=== PATIENT | female | born 1955 | race Asian ===

== ENCOUNTER 2018-06-30 05:33 | Emergency (ER) | payer OTHER ==
[~2018-06-30] VITALS: Ht 157.5 cm; Wt 75.4 kg
[2018-06-30 05:34] VITALS: BP 100/67
--- NOTE | 2018-06-30 05:47 | NUR ---
assessment made. ERP at bedside.
--- NOTE | 2018-06-30 06:13 | NUR ---
patient discharged with prescription and instruction. verbalized understanding. work note given.
== END 2018-06-30 06:16 | disposition home or self-care (01) ==
LOC: ED 06:10
DX: J10.1 Influenza due to other identified influenza virus with other respiratory manifestations (principal)
CPT/HCPCS: 99283

== ENCOUNTER 2020-09-30 08:24 | Emergency (ER) | payer OTHER ==
[~2020-09-30] VITALS: Ht 157.5 cm; Wt 76.4 kg
[~2020-09-30 08:24] MED LIST: PRAV20TA2 PO
[2020-09-30] MEDS ORDERED: MAALOX/HYOSCYAMINE/LIDOCAINE 45 ML BTL PO ONE (09:00)
[2020-09-30] MEDS ORDERED: ONDANSETRON 2MG/ML, 2ML IVPush ONE (09:00)
[2020-09-30] MEDS ORDERED: SODIUM CHLORIDE FLUSH 10ML SYR IVF ONE (09:00)
[2020-09-30 09:15] LABS: MICROSCOPIC AUTO
--- NOTE | 2020-09-30 09:21 | NUR ---
PT HAS BEEN EXPERIENCING ABDOMINAL PAIN WITH BACK PAIN FOR THREE DAYS. LABS OBTAINED INCLUDING URINE SPECIMEN
[2020-09-30 09:23] LABS: ALANINE AMINOTRANSFERASE 34 U/L (12-78); ALBUMIN 3.8 g/dL (3.4-5.0); ANION GAP 4 mmol/L (5-15); CHLORIDE 106 mmol/L (98-107); CREATININE 0.84 mg/dL (0.55-1.02)
[2020-09-30 09:25] LABS: ALKALINE PHOSPHATASE 71 U/L (45-117); BASOPHILS % (AUTO) 0 % (0-1); BILIRUBIN,TOTAL 1.2 mg/dL (0.2-1.0); EOSINOPHILS % (AUTO) 0 % (1-7); LYMPHOCYTES % (AUTO) 10 % (22-44); MEAN CORPUSCULAR HEMOGLOBIN 30.2 pg (27.0-34.8); MEAN CORPUSCULAR HGB CONC 33.2 g/dL (32.4-35.8); MEAN PLATELET VOLUME 8.2 fL (7.4-10.4); MONOCYTES % (AUTO) 7 % (2-9); NEUTROPHILS % (AUTO) 83 % (42-75); RED BLOOD COUNT 5.01 x10^6/uL (3.82-5.3); RED CELL DISTRIBUTION WIDTH 12.9 % (9.6-15.2); TOTAL PROTEIN 8.1 g/dL (6.4-8.2)
[2020-09-30 09:39] LABS: PLATELET COUNT 104 x10^3/uL (130-400)
[2020-09-30] MEDS ORDERED: ONDANSETRON ODT 4 MG ONE (10:40)
[2020-09-30] MEDS ORDERED: MAALOX/HYOSCYAMINE/LIDOCAINE 45 ML BTL ONE (10:43)
--- NOTE | 2020-09-30 10:56 | NUR ---
MEDICATED FOR PAIN. FAMILY AT BEDSIDE.
[2020-09-30] MEDS ORDERED: ONDANSETRON ODT 4 MG PO ONE (11:00)
--- NOTE | 2020-09-30 11:14 | NUR ---
PT STATES PAIN IMPROVED SINCE MEDICATED PER ORDERS.
[2020-09-30] MEDS ORDERED: FAMOTIDINE 20 MG TABLET ONE (11:56)
[2020-09-30] MEDS ORDERED: FAMOTIDINE 20 MG TABLET PO ONE (12:00)
--- NOTE | 2020-09-30 12:48 | NUR ---
XRAY AT BEDSIDE.
[2020-09-30 13:30] VITALS: BP 145/72
== END 2020-09-30 13:34 | disposition home or self-care (01) ==
LOC: ED 11:18
DX: K29.70 Gastritis, unspecified, without bleeding (principal); R10.32 Left lower quadrant pain; R10.13 Epigastric pain; R94.31 Abnormal electrocardiogram [ECG] [EKG]
CPT/HCPCS: 36415; 74021; 80053; 81001; 83690; 85025; 93005; 99285; Q0162